=== PATIENT | female | born 1975 | race Caucasian/White ===

== ENCOUNTER 2019-04-18 09:18 | Emergency (ER) | payer OTHER ==
[2019-04-18 09:31] VITALS: BP 133/86
--- NOTE | 2019-04-18 09:55 | UC ---
Respiratory Complaint HPI - HPI Summary HPI Summary: 44 yo female presents with cough, hoarse voice, and left side pain. She tells me that about a week ago she developed an intermittently productive cough, post nasal drip, and b/l ear pain. The next 2-3 days developed hoarse voice. Yesterday she developed some left side pain just below her ribs that is worse with movement and coughing. Her URI symptoms have significantly improved, but is still feeling hot/cold at times - has not taken her temperature. She has been taking ibuprofen over the counter with good relief. She denies sore throat , rash, abdominal pain, n/v/d/c, dysuria, flank pain, vaginal discharge or bleeding. - History of Current Complaint Chief Complaint: UCRespiratory Stated Complaint: COUGH/SIDE PAIN Time Seen by Provider: 04/18/19 09:55 Hx Obtained From: Patient Hx Last Menstrual Period: 03/19/19 Onset/Duration: Gradual Onset Severity Initially: Mild Severity Currently: Mild Pain Intensity: 0 Pain Scale Used: 0-10 Numeric - Allergies/Home Medications Allergies/Adverse Reactions: Allergies Allergy/AdvReac Type Severity Reaction Status Date / Time No Known Allergies Allergy Verified 04/18/19 09:31 PMH/Surg Hx/FS Hx/Imm Hx - Additional Past Medical History Additional PMH: None - Surgical History Surgical History: Yes Surgery Procedure, Year, and Place: polyps removed from uterus - Family History Known Family History: Positive: Hypertension - Social History Occupation: Employed Full-time Lives: With Family Alcohol Use: None Substance Use Type: None Smoking Status (MU): Never Smoked Tobacco Review of Systems All Other Systems Reviewed And Are Negative: Yes Constitutional: Positive: Negative Skin: Positive: Negative Eyes: Positive: Negative ENT: Positive: Ear Ache - resolved, Nasal Discharge - resolved Respiratory: Positive: Cough Cardiovascular: Positive: Negative Gastrointestinal: Positive: Negative Neurovascular: Positive: Negative Musculoskeletal: Positive: Other: - left side pain Neurological: Positive: Negative Psychological: Positive: Negative Physical Exam - Summary Physical Exam Summary: GENERAL: NAD. WDWN. No pain distress. SKIN: No rashes, sores, lesions, or open wounds. HEENT: Head: AT/NC Eyes: EOM intact. Conjunctiva clear without inflammation or discharge. Ears: Hearing grossly normal. TMs intact, no bulging, erythema, or edema. Nose: Nasal mucosa pink and moist. NTTP maxillary and frontal sinus. Throat: Posterior oropharynx without exudates, erythema, or tonsillar enlargement. Uvula midline. NECK: Supple. Nontender. No lymphadenopathy. CHEST: CTAB. No r/r/w. No accessory muscle use. Breathing comfortably and in no distress. CV: RRR. Without m/r/g. Pulses intact. Cap refill <2seconds ABDOMEN: Soft. NTTP. No distention or guarding. No CVA tenderness. Bowel sounds present MSK: LEFT midaxillary inferior to rib cage with mild TTP. Pain reproduced with twisting of waist and bending. NEURO: Alert. PSYCH: Age appropriate behavior. Triage Information Reviewed: Yes Vital Signs: Initial Vital Signs Temp 97.8 F 04/18/19 09:28 Pulse 86 04/18/19 09:28 Resp 16 04/18/19 09:28 BP 133/86 04/18/19 09:28 Pulse Ox 100 04/18/19 09:28 Laboratory Tests 04/18/19 04/18/19 10:19 10:21 POC Glucose (mg/dL) 99 POC Urine Color Yellow POC Urine Clarity Clear POC Urine pH 5.0 POC Ur Specif [place] 1.025 POC Urine Protein Trace A POC Ur Glucose (UA) Negative POC Urine Ketones Trace A POC Urine Blood Trace-intact A POC Urine Nitrite Negative POC Urine Bilirubin 1+ A POC Urine Urobilinogen 0.2 POC U Leukocyte Esteras Negative Vital Signs Reviewed: Yes Respiratory Course/Dx - Course Course Of Treatment: UA with trace blood. Pt started her menstrual cycle today. We discussed obtaining a CXR to further evaluate her symptoms, but she declined. Suspect viral URI that is improving. Regarding her left side pain, this is reproducible with motions that engage the muscles in this area - therefore I suspect this is a MSK strain, likely due from coughing. Discussed viral vs bacterial causes with pt and she prefers to be on anbx at this time. - Differential Dx/Diagnosis Provider Diagnosis: URI (upper respiratory infection) Discharge - Sign-Out/Discharge Documenting (check all that apply): Patient Departure All imaging exams completed and their final reports reviewed: No Studies - Discharge Plan Condition: Stable Disposition: HOME Prescriptions: Azithromycin TAB* [Zithromax TAB (Z-CASS) 250 mg #6 tabs] 2 tab PO .TODAY, THEN 1 DAILY #1 cass Patient Education Materials: Upper Respiratory Infection (ED) Referrals: Ramiro Godfrey MD [Primary Care Provider] - Additional Instructions: If you develop a fever, shortness of breath, chest pain, new or worsening symptoms - please call your PCP or go to the ED immediately. Your blood pressure was slightly elevated at todays visit. Please see your primary provider within 4 weeks for recheck and re-evaluation. - Billing Disposition and Condition Condition: STABLE Disposition: Home
[2019-04-18] MEDS ORDERED: Azithromycin TAB* 250 MG PO ONE (10:30)
== END 2019-04-18 10:45 | disposition home or self-care (01) ==
LOC: UCEAST 09:18
DX: J06.9 Acute upper respiratory infection, unspecified (principal)
CPT/HCPCS: 81003; 99212; A9270-GY; G0463

== ENCOUNTER 2019-06-30 07:00 | Emergency (ER) | payer OTHER ==
[2019-06-30 07:29] VITALS: BP 132/95
--- NOTE | 2019-06-30 07:49 | ED ---
Abdominal Pain/Female - HPI Summary HPI Summary: 44 yr old female with the complaint of upper and lower abdominal pain. She feels her bowels churning and like acid in there. She states it hurts to have a BM, and her stools have been thinner. She had some fever chill symptoms as well. Symptoms for about three days. She has gone urination more frequently, but no dysuria. She states she has a history of diverticular disease. She states she has pain in the lower abdomen, and more on the left side. She reports being under a lot of stress at work. Her pain is moderate. - History of Current Complaint Chief Complaint: UCGI Stated Complaint: STOMACH PAIN Time Seen by Provider: 06/30/19 07:37 Hx Last Menstrual Period: last week Pain Intensity: 4 Allergies/Adverse Reactions: Allergies Allergy/AdvReac Type Severity Reaction Status Date / Time No Known Allergies Allergy Verified 06/30/19 07:16 Home Medications: Home Medications Acetaminophen [Mapap] 500 mg PO Q8H PRN 06/30/19 [History Confirmed 06/30/19] Al Hydrox/Mg Hydrox/Simet LIQ* [Maalox Plus*] 30 ml PO Q8H PRN 06/30/19 [ History Confirmed 06/30/19] PMH/Surg Hx/FS Hx/Imm Hx - Surgical History Surgery Procedure, Year, and Place: polyps removed from uterus Infectious Disease History: No Infectious Disease History: Denies: Traveled Outside the [place] in Last 30 Days - Family History Known Family History: Positive: Hypertension, Other - diverticular disease - Social History Occupation: Employed Full-time Alcohol Use: Weekly Alcohol Amount: 3 Substance Use Type: Reports: None Smoking Status (MU): Never Smoked Tobacco Review of Systems Positive: Fever, Chills Positive: Abdominal Pain Positive: frequency All Other Systems Reviewed And Are Negative: Yes Physical Exam Triage Information Reviewed: Yes Vital Signs On Initial Exam: Initial Vitals Temp Pulse Resp BP Pulse Ox 97.5 F 97 16 132/95 98 06/30/19 07:21 06/30/19 07:21 06/30/19 07:21 06/30/19 07:21 06/30/19 07:21 Vital Signs Reviewed: Yes Appearance: Positive: Well-Appearing, No Pain Distress Skin: Positive: Warm, Skin Color Reflects Adequate Perfusion Head/Face: Positive: Normal Head/Face Inspection Eyes: Positive: EOMI ENT: Positive: Normal ENT inspection Respiratory/Lung Sounds: Positive: Clear to Auscultation, Breath Sounds Present Cardiovascular: Positive: RRR. Negative: Murmur Abdomen Description: Positive: Soft, Other: - tender in the left lower quadrant. Negative: CVA Tenderness (R), CVA Tenderness (L) Musculoskeletal: Positive: Strength/ROM Intact Neurological: Positive: Alert, Oriented to Person Place, Time, Normal Gait, Speech Normal Psychiatric: Positive: Normal Diagnostics - Vital Signs Vital Signs Temp Pulse Resp BP Pulse Ox 06/30/19 07:21 97.5 F 97 16 132/95 98 - Laboratory Lab Results: Lab Results 06/30/19 Range/Units 07:36 POC Urine Color [place] POC Urine Clarity Slightly cloudy POC Urine pH 7.0 (5-9) POC Ur Specif [place] 1.015 (1.010-1.030) POC Urine Protein Trace A (Negative) POC Ur Glucose (UA) Negative (Negative) POC Urine Ketones Negative (Negative) POC Urine Blood 2+ A (Negative) POC Urine Nitrite Negative (Negative) POC Urine Bilirubin 1+ A (Negative) POC Urine Urobilinogen 0.2 (Negative) POC U Leukocyte Esteras 1+ A (Negative) Lab Statement: Any lab studies that have been ordered have been reviewed, and results considered in the medical decision making process. Abdominal Pain Fem Course/Dx - Course Course Of Treatment: 44 yr old female with left lower quadrant pain. Refused test. It is recommended she go to the ER for further work up of her pain with defecation and left lower tenderness. She was given instructions to go to the ER without delay for further care. Urine with trace leuk. Culture sent. - Diagnoses Provider Diagnoses: Left lower quadrant abdominal pain Discharge ED - Sign-Out/Discharge Documenting (check all that apply): Patient Departure All imaging exams completed and their final reports reviewed: No Studies - Discharge Plan Condition: Good Disposition: HOME-RECOMMEND TO ED Patient Education Materials: Acute Abdominal Pain (ED) Referrals: Ramiro Godfrey MD [Primary Care Provider] - Additional Instructions: YOU NEED TO GO TO THE ER FOR FURTHER LABS AND WORK UP WHICH MAY INCLUDE A CT OF YOUR ABDOMEN. DO NOT DELAY. YOUR URINE IS TRACE POSITIVE FOR LEUKOCYTES; A URINE CULTURE HAS ALSO BEEN SENT. - Billing Disposition and Condition Condition: GOOD Disposition: Home-Recommend to ED
== END 2019-06-30 07:55 | disposition home health service (06) ==
LOC: UCCORT 07:00
DX: R10.32 Left lower quadrant pain (principal); R35.0 Frequency of micturition; R50.9 Fever, unspecified
CPT/HCPCS: 81003; 87086; 99212; G0463